=== PATIENT | female | born 1940 | race Asian ===

== ENCOUNTER → 2019-08-28 | Day surgery (SDC) | payer MEDICARE, OTHER ==
[~2019-08-28] MED LIST: ACETAMINOPHEN 325 MG TABLET PO PRN; ALBUTEROL SULFATE 2.5 MG/3 ML NEBU. NEB PRN; ATOR20TA PO; ATROPINE 0.5 MG/5 ML DISP.SYRIN. IV PRN; BALANCED SALT IRRIG OPHTH SOLN 15 ML BOTTLE. IRR ONE; CATARACT OPHTH GEL 0.5 ML SYRINGE. OS ONE; CHONDROIT-SOD-HYALURONATE KIT. OS ONE; EPINEPHrine AMPULE 0.5 MG in BALANCED SALT IRRIG SOLN PLUS 500 ML IO ONE; ERYTHROMYCIN 0.5% OPHTH OINTMENT 1GM TUBE. OS ONE; HYALURONATE SODIUM 20 MG/2 ML SYRINGE. ONE; HYALURONIDASE 75UNITS in LIDOCAINE 2% PF OPHTH 10 ML SYRINGE. OS ONE; HYDR50TA6 PO; INSU100I13 SQ; IV RINGERS SOLUTION,LACTATED 1,000 ML IV SCH; KETO5DRO OS; KETOROLAC TROMETHAMINE 0.5% OPHTH SOLUTION BOTTLE. OS SCH; LEVO88TA2 PO; MIDAZOLAM HCL PF 2 MG/2 ML VIAL. IV PRN; MOXI3DRO18 OS; MOXIFLOXACIN 0.5% OPHTH SOLUTION 3ML BOTTLE. OS SCH; ONDANSETRON PF 4 MG/2 ML VIAL. IV PRN; PHENOL ORAL SPRAY 177ML BOTTLE. MM PRN; POVIDONE-IODINE 5% OPHTH SOLUTION 30ML BOTTLE. OS ONE; PRED5DRO20 OS; PROPOFOL 20 ML IV ONE; SITA100T PO; TETRACAINE 0.5% OPHTH SOLUTION 4ML BOTTLE. OS ONE; TETRACAINE 0.5% OPHTH SOLUTION 4ML BOTTLE. OU ONE; diphenhydrAMINE 50 MG/ML VIAL IV PRN; prednisoLONE ACETATE 1% OPHTH SUSPENSION 5ML BOTTLE. ONE; prednisoLONE ACETATE 1% OPHTH SUSPENSION 5ML BOTTLE. OS SCH
[2019-08-28] MEDS: MOXIFLOXACIN 0.5% OPHTH SOLUTION 3ML BOTTLE. OS SCH ×3 (07:15→07:29)
--- NOTE | 2019-08-28 09:09 | PDOC4 ---
CATARACT Operative Report DATE DATE: 08/28/19 TIME: 09:06 Operation Performed Operative Report Name: Yolanda Og Operation Date: @TD@ Preoperative Diagnosis: 1. Senile cataract, LEFT: eye Postoperative Diagnosis: 1. Senile cataract, LEFT: eye. Operation: 1. Phacoemulsification with Toric posterior chamber intraocular lens implant. Surgeon: Reginaldo Ruff D.O. Anesthesia: Local with monitored anesthesia care. Description of Operation: Prior to surgery, the patient was placed in the seated position. Topical anesthetic was instilled in the eye. The 3,6 and 9 o'clock limbus was marked with a corneal astigmatism marker. With cardiac monitoring and intravenous sedation, the patient received peribulbar anesthesia in the holding area. Pressure was applied to the eye with a Honan balloon for approximately 10 minutes. The patient was taken to the operating room and placed in a supine position. The periorbital region was prepped and draped in the usual sterile fashion. A lid speculum was placed between the eyelids. The patient was positioned under the microscope. A temporal clear corneal incision was made with a keratome. Viscoelastic was then injected into the eye. A side port incision was made three clock hours to the left of the clear corneal incision. A cystotome and capsular forceps were used to make a continuous tear capsulorhexus. Hydrodissection was performed with balanced salt solution. The phacoemulsification needle was placed into the eye and the cataract was removed. The remaining cortical material was removed with irrigation and aspiration. The posterior capsule was noted to be clean and intact. Viscoelastic was again injected into the eye, inflating the posterior capsular bag. The cornea was marked at the appropriate meridian. A foldable intraocular lens was then injected into the eye, unfolding as desired, and positioned in the capsular bag at the appropriate meridian. The viscoelastic was aspirated from the eye. The wound edges were hydrated with balanced salt solution. There were no wound leaks. Viscoelastic was injected over the side port and clear corneal incisions. One drop of Vigamox and one drop of prednisolone acetate were instilled into the eye. The lid speculum was removed and a pressure dressing with a Curtis shield was placed over the eye. The patient was taken to the [facility] room in good condition. ELIZABETH RUFF DO Aug 28, 2019 09:09
[2019-08-28 09:16] VITALS: BP 173/86
== END ==
LOC: SURG 06:32
PROVIDERS: ATTEND Ophthalmology
DX: H25.9 Unspecified age-related cataract (principal); I10 Essential (primary) hypertension; E11.9 Type 2 diabetes mellitus without complications; E03.9 Hypothyroidism, unspecified; E66.9 Obesity, unspecified; Z68.33 Body mass index [BMI] 33.0-33.9, adult; Z90.710 Acquired absence of both cervix and uterus; Z72.89 Other problems related to lifestyle; Z79.84 Long term (current) use of oral hypoglycemic drugs
CPT/HCPCS: 66984; J0171; J2704; V2632

== ENCOUNTER 2021-06-11 05:47 | Emergency (ER) | payer MEDICARE, OTHER ==
[~2021-06-11] VITALS: Ht 160 cm; Wt 86.0 kg
[~2021-06-11 05:47] MED LIST changes: -ACETAMINOPHEN 325 MG TABLET PO PRN; -ALBUTEROL SULFATE 2.5 MG/3 ML NEBU. NEB PRN; -ATROPINE 0.5 MG/5 ML DISP.SYRIN. IV PRN; -BALANCED SALT IRRIG OPHTH SOLN 15 ML BOTTLE. IRR ONE; -CATARACT OPHTH GEL 0.5 ML SYRINGE. OS ONE; -CHONDROIT-SOD-HYALURONATE KIT. OS ONE; -EPINEPHrine AMPULE 0.5 MG in BALANCED SALT IRRIG SOLN PLUS 500 ML IO ONE; -ERYTHROMYCIN 0.5% OPHTH OINTMENT 1GM TUBE. OS ONE; -HYALURONATE SODIUM 20 MG/2 ML SYRINGE. ONE; -HYALURONIDASE 75UNITS in LIDOCAINE 2% PF OPHTH 10 ML SYRINGE. OS ONE; -HYDR50TA6 PO; +HYDR50TA9 PO; -IV RINGERS SOLUTION,LACTATED 1,000 ML IV SCH; -KETOROLAC TROMETHAMINE 0.5% OPHTH SOLUTION BOTTLE. OS SCH; -MIDAZOLAM HCL PF 2 MG/2 ML VIAL. IV PRN; -MOXIFLOXACIN 0.5% OPHTH SOLUTION 3ML BOTTLE. OS SCH; -ONDANSETRON PF 4 MG/2 ML VIAL. IV PRN; -PHENOL ORAL SPRAY 177ML BOTTLE. MM PRN; -POVIDONE-IODINE 5% OPHTH SOLUTION 30ML BOTTLE. OS ONE; -PROPOFOL 20 ML IV ONE; -TETRACAINE 0.5% OPHTH SOLUTION 4ML BOTTLE. OS ONE; -TETRACAINE 0.5% OPHTH SOLUTION 4ML BOTTLE. OU ONE; -diphenhydrAMINE 50 MG/ML VIAL IV PRN; -prednisoLONE ACETATE 1% OPHTH SUSPENSION 5ML BOTTLE. ONE; -prednisoLONE ACETATE 1% OPHTH SUSPENSION 5ML BOTTLE. OS SCH
--- NOTE | 2021-06-11 06:52 | PHYS DOC ---
Past History Additional Past Medical Histor: uterine ca-hyst Past Surgical History: Hysterectomy, Other Additional Past Surgical Histo: breast reduction, bilateral wedge resection General Adult EDM: Chief Complaint: DIZZY/LIGHT HEADED HPI: HPI: 80-year-old female presents with dizziness. The patient was in her garage around 430 this morning when she got a sudden episode of room spinning dizziness. She has been diagnosed with vertigo many years ago, but not having any trouble lately. Patient does admit that last night she thinks she might of had some light food poisoning and had several episodes of vomiting. The vomiting has resolved at this time. Currently, the patient has some room spinning feeling, but it is much better than at home. She is able to open her eyes. She has no other complaints at this time. Review of Systems: Review of Systems: Constitutional: Denies fever or chills Eyes: Denies change in visual acuity HENT: Denies nasal congestion or sore throat Respiratory: Denies cough or shortness of breath Cardiovascular: Denies chest pain or edema GI: Denies abdominal pain, nausea, vomiting, bloody stools or diarrhea : Denies dysuria Musculoskeletal: Denies back pain or joint pain Integument: Denies rash Neurologic: Dizziness. Denies headache, focal weakness or sensory changes Endocrine: Denies polyuria or polydipsia Lymphatic: Denies swollen glands Psychiatric: Denies depression or anxiety Allergies: Allergies: Allergies Coded Allergies Type Severity Reaction Last Updated Verified Sulfa (Sulfonamide Antibiotics) Allergy Unknown 08/23/19 Yes lisinopril Allergy Unknown 08/23/19 Yes Physical Exam: PE: Constitutional: Well developed, well nourished, obese, no acute distress, non- toxic appearance. [] HENT: Normocephalic, atraumatic, bilateral external ears normal, oropharynx moist, no oral exudates, nose normal. [] Eyes: PERRLA, EOMI, conjunctiva normal, no discharge. Mild intermittent nystagmus right eye [] Neck: Normal range of motion, no tenderness, supple, no stridor. [] Cardiovascular: Heart rate regular rhythm, no murmur [] Lungs & Thorax: Bilateral breath sounds clear to auscultation [] Abdomen: Bowel sounds normal, soft, no tenderness, no masses, no pulsatile masses. [] Skin: Warm, dry, no erythema, no rash. [] Back: No tenderness, no CVA tenderness. [] Extremities: No tenderness, no cyanosis, no clubbing, ROM intact, no edema. [] Neurologic: Alert and oriented X 3, normal motor function, normal sensory function, no focal deficits noted. [] Psychologic: Affect normal, judgement normal, mood normal. [] Current Patient Data: Vital Signs: Vital Signs Date Time Temp Pulse Resp B/P (MAP) Pulse Ox O2 Delivery O2 Flow Rate FiO2 06/11/21 05:47 97.7 58 14 139/47 (77) 98 Room Air EKG: EKG: Sinus rhythm, rate 60, normal axis, no ST elevation or depression, inverted T waves in V3 through V6. [] Radiology/Procedures: Radiology/Procedures: [] Impressions: Exam performed: One view chest. Indication: Reason: dizzy / Spl. Instructions: / History: Date of Service: 06/11/2021 6:50 AM Comparison: None available. Single AP upright portable view chest findings: Cardiomediastinal silhouette is within limits of normal. No acute infiltrates, effusion or pneumothorax is detected. Mild prominent The bony structures are normal. Impression: No acute cardiopulmonary process is detected. Electronically signed by: Danelle Chatman MD (06/11/2021 7:03 AM) [facility] DICTATED AND SIGNED BY: DANELLE CHATMAN MD DATE: 06/11/21 0702 CC: REYNA ALICIA DO; LUANN HAGAN DO ~MTH0 0 Heart Score: C/O Chest Pain: N/A Risk Factors: Risk Factors: DM, Current or recent (<one month) smoker, HTN, HLP, family history of CAD, obesity. Risk Scores: Score 0 - 3: 2.5% MACE over next 6 weeks - Discharge Home Score 4 - 6: 20.3% MACE over next 6 weeks - Admit for Clinical Observation Score 7 - 10: 72.7% MACE over next 6 weeks - Early Invasive Strategies Course & Med Decision Making: Course & Med Decision Making Pertinent Labs and Imaging studies reviewed. (See chart for details) The patient's EKG shows some inverted T waves V3 through V6. No acute ST e levations. Her chest x-ray is unremarkable. I have treated the patient with Zofran, normal saline, and meclizine. The patient's labs are significant for a potassium of 3.2 but a blood sugar of 323 with a normal anion gap. This may be contributing significantly to patient's symptoms. The patient's troponin is negative. She is feeling better at this time would like to go home. I have discussed her blood sugar with her. She is reassured by her other negative results. She is stable for discharge at this time. [] Dragon Disclaimer: Dragon Disclaimer: This electronic medical record was generated, in whole or in part, using a voice recognition dictation system. Departure Departure: Impression: Primary Impression: Vertigo Additional Impression: Hyperglycemia Disposition: HOME / SELF CARE / HOMELESS Condition: STABLE Referrals: LUANN HAGAN DO (PCP) Patient Instructions: Hyperglycemia, Hash-ry-Yzgo, Vertigo, [id number] REYNA ALICIA DO Jun 11, 2021 06:52
[2021-06-11 06:55] LABS: BASO # 0.1 x10^3/uL (0.0-0.2); BASO % 1 % (0-3); EOS # 0.1 x10^3/uL (0.0-0.7); EOS % 1 % (0-3); HEMATOCRIT 39.1 % (36.0-47.0); HEMOGLOBIN 13.5 g/dL (12.0-15.5); LYMPH # 1.7 x10^3/uL (1.0-4.8); LYMPH % 17 % (24-48); MEAN CORPUSCULAR HEMOGLOBIN 34 pg (25-35); MEAN CORPUSCULAR HGB CONC 35 g/dL (31-37); MEAN CORPUSCULAR VOLUME 97 fL (79-100); MONO # 0.4 x10^3/uL (0.0-1.1); MONO % 4 % (0-9); NEUT # 7.6 x10^3uL (1.8-7.7); NEUT % 77 % (31-73); PLATELET COUNT 198 x10^3/uL (140-400); RED BLOOD COUNT 4.04 x10^6/uL (3.50-5.40); WHITE BLOOD COUNT 9.9 x10^3/uL (4.0-11.0)
[2021-06-11] MEDS ORDERED: IV NORMAL SALINE 1,000ML 1,000 ML IV ONE (07:00)
[2021-06-11] MEDS ORDERED: ONDANSETRON PF 4 MG/2 ML VIAL. IVP ONE (07:00)
[2021-06-11] MEDS ORDERED: MECLIZINE 12.5 MG TABLET. PO ONE (07:00)
[2021-06-11 07:03] LABS: CALCIUM 9.1 mg/dL (8.5-10.1); CREATININE 0.8 mg/dL (0.6-1.0); GFR 69.4; POTASSIUM 3.2 mmol/L (3.5-5.1)
--- NOTE | 2021-06-11 07:06 | RAD ---
Exam performed: One view chest. Indication: Reason: dizzy / Spl. Instructions: / History: Date of Service: 06/11/2021 6:50 AM Comparison: None available. Single AP upright portable view chest findings: Cardiomediastinal silhouette is within limits of normal. No acute infiltrates, effusion or pneumotho rax is detected. Mild prominent The bony structures are normal. Impression: No acute cardiopulmonary process is detected. Electronically signed by: Danelle Chatman MD (06/11/2021 7:03 AM) [facility]
[2021-06-11 07:09] LABS: ALBUMIN 3.6 g/dL (3.4-5.0); TOTAL BILIRUBIN 0.7 mg/dL (0.2-1.0); TOTAL PROTEIN 7.1 g/dL (6.4-8.2)
[2021-06-11 07:11] LABS: BACTERIA,URINE FEW /HPF (0-FEW); BILIRUBIN,URINE NEG (NEG); CLARITY,URINE HAZY; COLOR,URINE YELLOW; GLUCOSE,URINE >=1000 mg/dL (NEG); NITRITE,URINE NEG (NEG); RBC,URINE >40 /HPF (0-2); SQUAMOUS EPITHELIAL CELL,UR MOD /LPF; UROBILINOGEN,URINE 0.2 mg/dL (0.2 mg/dL)
[2021-06-11] MEDS ORDERED: POTASSIUM CHLORIDE 20 MEQ TABLET.ER. PO ONE (07:30)
[2021-06-11 07:43] VITALS: BP 144/59
== END 2021-06-11 07:44 | disposition home or self-care (01) ==
LOC: ER 07:37
DX: R42 Dizziness and giddiness (principal); R73.9 Hyperglycemia, unspecified; Z88.8 Allergy status to other drugs, medicaments and biological substances; Z88.2 Allergy status to sulfonamides; Z90.710 Acquired absence of both cervix and uterus
CPT/HCPCS: 36415; 71045; 80053; 81001; 84484; 85025; 93005; 96361; 96374; 99285; J2405; J7030

== ENCOUNTER 2021-06-20 05:17 | Emergency (ER) | payer MEDICARE, OTHER ==
[~2021-06-20] VITALS: Ht 160 cm; Wt 86.0 kg
--- NOTE | 2021-06-20 05:30 | PHYS DOC ---
Past History Additional Past Medical Histor: uterine ca-hyst (BRANDEE DOAN MD) Past Surgical History: Hysterectomy, Other Additional Past Surgical Histo: breast reduction, bilateral wedge resection (BRANDEE DOAN MD) Alcohol Use: None (BRANDEE DOAN MD) Adult General HPI HPI Patient is a 80-year-old female who presents to the emergency department [facility] with a chief complaint of left lower quadrant abdominal pain for the last couple of days, 6 out of 10, dull and achy in nature associated with nausea and vomiting has been nonbloody and nonbilious intermittently over the last week. States over the last couple of days she has been unable to really keep any whole food down but is able to drink a little bit of fluid. States she is a diabetic, uses insulin and has been taking her insulin and her other medications as prescribed. Denies any recent traumas, travels, fevers, chest pain, dysuria, hematuria, diarrhea or blood in the stool. Does endorse some feelings of shortness of breath. (BRANDEE DOAN MD) Review of Systems Review of Systems Review of systems otherwise unremarkable except noted in HPI (BRANDEE DOAN MD) Allergies Allergies Allergies Coded Allergies Type Severity Reaction Last Updated Verified Sulfa (Sulfonamide Antibiotics) Allergy Unknown 08/23/19 Yes lisinopril Allergy Unknown 08/23/19 Yes (BRANDEE DOAN MD) Physical Exam Physical Exam Constitutional: Well developed, well nourished, appears ill. [] HENT: Normocephalic, atraumatic, oropharynx moist, no oral exudates, nose normal. [] Eyes: PERRLA, EOMI, conjunctiva normal, no discharge. [] Neck: Normal range of motion, no tenderness, supple, no stridor. [] Cardiovascular:Heart rate regular rhythm, no murmur [] Lungs & Thorax: Bilateral breath sounds with scant rhonchi, tachypnea on room air, hypoxia on room air to 89 Abdomen: soft, no tenderness, no masses, no pulsatile masses. [] Skin: Warm, dry, no erythema, no rash. [] Back: no CVA tenderness. [] Extremities: No tenderness, ROM intact, no edema. [] Neurologic: Alert and oriented X 3, no focal deficits noted. [] Psychologic: Affect normal, judgement normal, mood normal. [] (BRANDEE DOAN MD) EKG EKG [] (BRANDEE DOAN MD) EKG 0523 Sinus tachycardia 114 bpm, right axis deviation, QTC 461, concern for area of elevation with ST depression V4 through V6, this was compared to 06/11 EKG- which has some mild aVR elevation and lateral T wave inversions that are no longer present 0942 Sinus rhythm 70 bpm, right axis deviation, normal intervals, slight aVR ST elevation, T wave inversion V5 and V6, no active chest pain 1326 sinus tachycardia 130 extreme right axis deviation, normal intervals, persistent aVR elevation with V4 through V6 ST segment depressions, no T wave inversions (CINDY,PRISCILLA Duron DO) Radiology/Procedures Radiology/Procedures [] (BRANDEE DOAN MD) Radiology/Procedures IMAGING REPORT Signed PATIENT: EDWIGE CROWLEY ACCOUNT: [id number] : 1940 LOCATION: ER AGE: 80 SEX: F EXAM STATUS: REG ER ORD. PHYSICIAN: BRANDEE DOAN MD REASON: lightheaded, N/V PROCEDURE: CT HEAD WO CONTRAST CT head without contrast dated 06/20/2021 6:40 AM Comparison: None CLINICAL INDICATION: Lightheadedness TECHNIQUE: Contiguous axial imaging of the head was performed from skull base to vertex. One or more of the following individualized dose reduction techniques were utilized for this examination: 1. Automated exposure control 2. Adjustment of the mA and/or kV according to patient size 3. Use of iterative reconstruction technique. FINDINGS: Ventricles and sulci are mildly prominent for age. No midline shift or mass effect. Brain parenchyma is of normal attenuation. No hemorrhage or extra-axial collection. Posterior fossa and brainstem unremarkable. Visualized paranasal sinuses and mastoid air cells are clear. No apparent calvarial abnormality. IMPRESSION: No evidence of acute intracranial abnormality. Electronically signed by: Familia Barajas MD (06/20/2021 6:41 AM) [facility] [place] BY: FAMILIA BARAJAS MD DATE: 06/20/21 0640 CC: BRANDEE DOAN MD; LUANN HAGAN DO; PRISCILLA WHITE DO ~MTH0 0 IMAGING REPORT Signed PATIENT: EDWIGE CROWLEY ACCOUNT: [id number] : 1940 LOCATION: ER AGE: 80 SEX: F EXAM STATUS: REG ER ORD. PHYSICIAN: BRANDEE DOAN MD REASON: SOB PROCEDURE: CHEST AP ONLY Single view chest dated 06/20/2021 6:39 AM: COMPARISON: 06/11/2021 Clinical Indication: Shortness of breath. Findings: Single upright portable exam of the chest was performed. Heart and mediastinal contours are stable. There is some patchy and linear perihilar opacities, unchanged. No consolidation or pleural effusion. No pneumothorax. IMPRESSION: No acute radiographic abnormality. Stable findings compared to 06/11/2021. Electronically signed by: Familia Barajas MD (06/20/2021 6:40 AM) [facility] [place] BY: FAMILIA BARAJAS MD DATE: 06/20/21 0639 CC: BRANDEE DOAN MD; LUANN HAGAN DO; PRISCILLA WHITE DO ~MTH0 0 IMAGING REPORT Signed PATIENT: EDWIGE CROWLEY ACCOUNT: [id number] : 1940 LOCATION: ER AGE: 80 SEX: F EXAM STATUS: REG ER ORD. PHYSICIAN: BRANDEE DOAN MD REASON: LLQ pain PROCEDURE: CT ABD PELV W/ IV CONTRST ONLY CT abdomen pelvis with contrast dated 06/20/2021. No comparison available. CLINICAL INDICATION: Left lower quadrant pain. TECHNIQUE: Contiguous axial imaging of the abdomen pelvis performed following the intravenous administration of 75 cc Isovue-370. One or more of the following individualized dose reduction techniques were utilized for this examination: 1. Automated exposure control 2. Adjustment of the mA and/or kV according to patient size 3. Use of iterative reconstruction technique FINDINGS: Limited images of lung bases are clear. Heart size is within normal limits. No pleural or pericardial effusion. Coronary artery calcifications. Liver is of diffuse low density suggesting fatty infiltration. No apparent mass. Biliary tree is normal in caliber. Calcified stones in the gallbladder. Spleen is normal in size. Pancreas, adrenal glands unremarkable. There is a 8 mm calcific stone at the left UPJ/proximal ureter with mild left-sided h ydronephrosis. Mild hypoenhancement of left kidney relative to the right side. There is also some asymmetric inflammatory stranding in the left perinephric fat. Small low-density focus at the posterior midpole, likely cyst. No right- sided stone or hydronephrosis. Unopacified GI tract normal in caliber and contour. No focal bowel wall thickening. No inflammatory stranding in the mesentery. Appendix normal in caliber. No ascites or lymphadenopathy. Abdominal aorta normal in caliber. Images of pelvis show nondistended urinary bladder. Mild diffuse bladder wall thickening. No free fluid or pelvic lymphadenopathy. Bone windows show no acute findings. Multilevel spondylosis. IMPRESSION: 1. There is a 8 mm calcific stone at the proximal left ureter with mild ob structive uropathy. 2. Otherwise no acute findings. Normal appendix. 3. Cholelithiasis. 4. Mild wall thickening of the urinary bladder, nonspecific. Consider acute or chronic cystitis. Electronically signed by: Familia Barajas MD (06/20/2021 6:46 AM) [facility] [place] SIGNED BY: FAMILIA BARAJAS MD DATE: 06/20/21 0642 CC: BRANDEE DOAN MD; LUANN HAGAN DO; PRISCILLA WHITE DO ~MTH0 0 (VOHS,PRISCILLA Oliverio DO) Heart Score C/O Chest Pain: No Risk Factors: Risk Factors: DM, Current or recent (<one month) smoker, HTN, HLP, family histo ry of CAD, obesity. Risk Scores: Risk Factors: DM, Current or recent (<one month) smoker, HTN, HLP, family history of CAD, obesity. (BRANDEE DOAN MD) Course & Med Decision Making Course & Med Decision Making Patient is a 80-year-old female who presents with a chief complaint of left lower quadrant abdominal pain, nausea and vomiting Vital signs notable for tachycardia, tachypnea, hypoxia on room air. Placed on the monitor with IV access established. Placed on 2 L nasal cannula to get to 93%. (BRANDEE DOAN MD) Course & Med Decision Making I received sign out at shift change from Dr. Doan. Pt with left sided abdominal pain, nausea and vomiting, concern for sepsis secondary to pyelonephritis with left-sided obstructive uropathy and mild hydronephrosis. EKG with no new ischemic changes-initial troponin negative, repeat elevated. I d/w Dr. Nassar, cardiology who recommends aspirin and serial troponins. I re- evaluated patient multiple times with her son-in-law at bedside, (patient consents to his/her/their knowledge and involvement in pts' medical care). Pt later c/o leg cramps, treated with flomax. Pt also treated w/rocephin, toradol and flomax. Pt requested benadryl. Repeat labs show worsening renal function s/p 2.5L NS. Pt accepted at [facility]-Dr. Negro Murphy was updated regarding nstemi. Pt stable at time of ems transfer and had no abdominal or chest discomfort at that time. I have spoken with the patient and/or caregivers. I have explained the patient's condition, diagnosis and treatment plan based on the information available to me at this time. I have answered the patient's and/or caregivers questions and answered any concerns. The patient and/or caregivers have as good an understanding of the patient's diagnosis, condition and treatment plan as can be expected at this point. The patient has been stabilized within the capability of the emergency department. The patient will be transported for further care and management or will be moved to an observation or inpatient service. I have communicated with the staff or medical practitioner taking over this patient's care. Critical Care: Authorized and Performed by: Priscilla White DO Total critical care time: approximately 120 minutes Due to a high probability of clinically significant, life threatening deterioration, the patient required my highest level of preparedness to intervene emergently and I personally spent this critical care time directly and personally managing the patient. This critical care time included obtaining a history; examining the patient; pulse oximetry; ventilator management if necessary; ordering and review of studies; arranging urgent treatment with development of a management plan; evaluation of patient's response to treatment; frequent reassessment; discussion with patient/family; and, discussions with other providers. This critical care time was performed to assess and manage the high probability of imminent, life-threatening deterioration that could result in multi-organ failure. It was exclusive of separately billable procedures and treating other patients and teaching time. Please see MDM section and the rest of the note for further information on patient assessment and treatment. (PRISCILLA WHITE DO) Dragon Disclaimer Dragon Disclaimer This electronic medical record was generated, in whole or in part, using a voice recognition dictation system. (BRANDEE DOAN MD) Departure Departure: Impression: Primary Impression: Abdominal pain Additional Impressions: Nausea & vomiting Ureterolithiasis Sepsis Obstructive uropathy Pyelonephritis ANDREA (acute kidney injury) NSTEMI (non-ST elevated myocardial infarction) Disposition: [address] [facility] ([facility], Dr. Negro Butler) Condition: CRITICAL Referrals: LUANN HAGAN DO (PCP) Problem Qualifiers BRANDEE DOAN MD Jun 20, 2021 05:30 VOPRISCILLA DO Jun 20, 2021 06:58
--- NOTE | 2021-06-20 05:31 | EKG ---
[address] [address] Test Date: 2021-06-20 Test Time: 05:23:10 Pat Name: EDWIGE CROWLEY Department: Room: Gender: F Hay Baler: : 1940 Requested By: BRANDEE DOAN Order Number: [id number] Reading MD: Mike Nassar Measurements Intervals [place] Rate: 114 P: 27 DC: 158 QRS: 102 QRSD: 86 T: 38 QT: 332 QTc: 461 Interpretive Statements SINUS TACHYCARDIA ANTEROLATERAL ISCHEMIA OR LV STRAIN Electronically Signed On 06-21-2021 16:41:56 CDT by Mike Nassar
[2021-06-20] MEDS ORDERED: ACETAMINOPHEN 500 MG TABLET PO ONE ×2 (05:43→05:45)
[2021-06-20] MEDS ORDERED: IV RINGERS SOLUTION,LACTATED 1,000 ML IV ONE (05:45)
[2021-06-20] MEDS ORDERED: CONTRAST GIVEN. MC PRN (05:45)
[2021-06-20] MEDS ORDERED: IOHEXOL 300 MG/ML 75 ML VIAL. IV ONE (06:00)
[2021-06-20] MEDS ORDERED: diphenhydrAMINE 50 MG/ML VIAL IVP ONE ×2 (06:00→12:15)
[2021-06-20] MEDS ORDERED: ONDANSETRON PF 4 MG/2 ML VIAL. IVP ONE ×2 (06:00→11:15)
[2021-06-20 06:31] LABS: BASO % 0 % (0-3); EOS % 0 % (0-3); HEMATOCRIT 39.4 % (36.0-47.0); HEMOGLOBIN 13.6 g/dL (12.0-15.5); LYMPH # 0.4 x10^3/uL (1.0-4.8); LYMPH % 5 % (24-48); MEAN CORPUSCULAR HEMOGLOBIN 33 pg (25-35); MEAN CORPUSCULAR HGB CONC 35 g/dL (31-37); MEAN CORPUSCULAR VOLUME 97 fL (79-100); MONO % 1 % (0-9); NEUT # 7.6 x10^3uL (1.8-7.7); NEUT % 95 % (31-73); PLATELET COUNT 182 x10^3/uL (140-400); RED BLOOD COUNT 4.08 x10^6/uL (3.50-5.40)
[2021-06-20 06:34] LABS: CALCIUM 8.6 mg/dL (8.5-10.1); CREATININE 1.3 mg/dL (0.6-1.0); GFR 39.6; POTASSIUM 3.2 mmol/L (3.5-5.1)
[2021-06-20 06:40] LABS: ALBUMIN 3.4 g/dL (3.4-5.0); MAGNESIUM 1.8 mg/dL (1.8-2.4); TOTAL BILIRUBIN 1.8 mg/dL (0.2-1.0); TOTAL PROTEIN 6.9 g/dL (6.4-8.2)
--- NOTE | 2021-06-20 06:43 | RAD ---
Single view chest dated 06/20/2021 6:39 AM: COMPARISON: 06/11/2021 Clinical Indication: Shortness of breath. Findings: Single upright portable exam of the chest was performed. Heart and mediastinal contours are stable. T here is some patchy and linear perihilar opacities, unchanged. No consolidation or pleural effusion. No pneumothorax. IMPRESSION: No acute radiographic abnormality. Stable findings compared to 06/11/2021. Electronically signed by: Familia Barajas MD (06/20/2021 6:40 AM) [facility]
--- NOTE | 2021-06-20 06:44 | RAD ---
CT head without contrast dated 06/20/2021 6:40 AM Comparison: None CLINICAL INDICATION: Lightheadedness TECHNIQUE: Contiguous axial imaging of the head was performed from skull base to vertex. One or more of the following individualized dose reduction techniques were utilized for this examinat ion: 1. Automated exposure control 2. Adjustment of the mA and/or kV according to patient size 3. Use of iterative reconstruction technique. FINDINGS: Ventricles and sulci are mildly prominent for age. No midline shift or mass effect. Brain parenchyma is of normal attenuation. No hemorrhage or extra-axial collection. Posterior fossa and brainstem unre markable. Visualized paranasal sinuses and mastoid air cells are clear. No apparent calvarial abnormality. IMPRESSION: No evidence of acute intracranial abnormality. Electronically signed by: Familia Barajas MD (06/20/2021 6:41 AM) [facility]
--- NOTE | 2021-06-20 06:48 | RAD ---
CT abdomen pelvis with contrast dated 06/20/2021. No comparison available. CLINICAL INDICATION: Left lower quadrant pain. TECHNIQUE: Contiguous axial imaging of the abdomen pelvis performed following the intravenous administration of 75 cc Isovue-370. One or more of the following individualized dose reduction techniques were utilized for this examinat ion: 1. Automated exposure control 2. Adjustment of the mA and/or kV according to patient size 3. Use of iterative reconstruction technique FINDINGS: Limited images of lung bases are clear. Heart size is within normal limits. No pleural or pericardial effusion. Coronary artery calcifications. Liver is of diffuse low density suggesting fatty infiltration. No apparent mass. Biliary tree is norm al in caliber. Calcified stones in the gallbladder. Spleen is normal in size. Pancreas, adrenal glands unremarkable. There is a 8 mm calcific stone at th e left UPJ/proximal ureter with mild left-sided hydronephrosis. Mild hypoenhancement of left kidney r elative to the right side. There is also some asymmetric inflammatory stranding in the left perinephr ic fat. Small low-density focus at the posterior midpole, likely cyst. No right-sided stone or hydron ephrosis. Unopacified GI tract normal in caliber and contour. No focal bowel wall thickening. No inflammatory s tranding in the mesentery. Appendix normal in caliber. No ascites or lymphadenopathy. Abdominal aorta normal in caliber. Images of pelvis show nondistended urinary bladder. Mild diffuse bladder wall thickening. No free flu id or pelvic lymphadenopathy. Bone windows show no acute findings. Multilevel spondylosis. IMPRESSION: 1. There is a 8 mm calcific stone at the proximal left ureter with mild obstructive uropathy. 2. Otherwise no acute findings. Normal appendix. 3. Cholelithiasis. 4. Mild wall thickening of the urinary bladder, nonspecific. Consider acute or chronic cystitis. Electronically signed by: Familia Barajas MD (06/20/2021 6:46 AM) [facility]
[2021-06-20] MEDS ORDERED: TAMSULOSIN 0.4 MG CAP.ER.24H. PO ONE (07:00)
[2021-06-20] MEDS: KETOROLAC 15 MG/ML VIAL. IVP ONE ×2 (07:00→08:09)
[2021-06-20 07:56] LABS: BACTERIA,URINE MANY /HPF (0-FEW); BILIRUBIN,URINE NEG (NEG); CLARITY,URINE CLOUDY; COLOR,URINE YELLOW; GLUCOSE,URINE 100 mg/dL (NEG); NITRITE,URINE POS (NEG); SQUAMOUS EPITHELIAL CELL,UR MANY /LPF; UROBILINOGEN,URINE 0.2 mg/dL (0.2 mg/dL)
[2021-06-20] MEDS ORDERED: cefTRIAXone SODIUM 1 GM VIAL ONE (08:04)
[2021-06-20] MEDS ORDERED: IV NORMAL SALINE 50ML 50 ML ONE (08:04)
[2021-06-20] MEDS ORDERED: DEXTROSE 50% 25 GM / 50ML DISP.SYRIN. IV ONE ×2 (10:53→11:00)
[2021-06-20] MEDS ORDERED: ONDANSETRON PF 4 MG/2 ML VIAL. ONE (11:09)
[2021-06-20] MEDS ORDERED: diazePAM 5 MG TABLET. PO ONE (12:00)
--- NOTE | 2021-06-20 12:00 | EKG ---
[address] [address] Test Date: 2021-06-20 Test Time: 09:42:24 Pat Name: EDWIGE CROWLEY Department: Room: Gender: F [employer]: ADRI : 1940 Requested By: AIME WHITE Order Number: [id number] Reading MD: Mike Nassar Measurements Intervals [place] Rate: 78 P: 41 IN: 164 QRS: 100 QRSD: 90 T: 62 QT: 376 QTc: 432 Interpretive Statements SINUS RHYTHM RIGHTWARD AXIS T ABNORMALITY IN ANTEROLATERAL LEADS ABNORMAL ECG Electronically Signed On 06-21-2021 16:40:56 CDT by Mike Nassar
[2021-06-20] MEDS ORDERED: diphenhydrAMINE 50 MG/ML VIAL ONE (12:04)
[2021-06-20] MEDS ORDERED: IV NORMAL SALINE 1,000ML 1,000 ML IV ONE ×4 (12:15→13:45)
[2021-06-20] MEDS ORDERED: VANCOMYCIN 2 GM in IV NORMAL SALINE 500ML 500 ML IV ONE (12:30)
[2021-06-20] MEDS ORDERED: VANCOMYCIN PER PHARMACY MC PRN (12:30)
[2021-06-20] MEDS ORDERED: ASPIRIN 325 MG TABLET PO ONE (13:45)
[2021-06-20 13:47] VITALS: BP 135/54
[2021-06-20 13:51] LABS: CALCIUM 8.4 mg/dL (8.5-10.1); CREATININE 1.9 mg/dL (0.6-1.0); GFR 25.6; POTASSIUM 3.1 mmol/L (3.5-5.1)
--- NOTE | 2021-06-20 13:53 | EKG ---
[address] [address] Test Date: 2021-06-20 Test Time: 13:26:32 Pat Name: EDWIGE CROWLEY Department: Room: Gender: F [employer] A[employer]: ADRI : 1940 Requested By: AIME WHITE Order Number: [id number] Reading MD: Mike Nassar Measurements Intervals [place] Rate: 130 P: -69 DE: 150 QRS: 118 QRSD: 90 T: 45 QT: 304 QTc: 454 Interpretive Statements SINUS TACHYCARDIA LEFT ATRIAL ABNORMALITY ABNORMAL RIGHT AXIS DEVIATION LEFT POSTERIOR FASCICULAR BLOCK ABNORMAL ECG Electronically Signed On 06-21-2021 16:39:32 CDT by Mike Nassar
[2021-06-20] MEDS ORDERED: ASPIRIN CHEWABLE 81 MG TABLET. ONE (13:59)
[2021-06-20] MEDS ORDERED: ASPIRIN CHEWABLE 81 MG TABLET. PO ONE (14:00)
== END 2021-06-20 14:57 | disposition short-term general hospital (02) ==
LOC: ER 05:17
DX: A41.9 Sepsis, unspecified organism (principal); I21.4 Non-ST elevation (NSTEMI) myocardial infarction; N17.9 Acute kidney failure, unspecified; N12 Tubulo-interstitial nephritis, not specified as acute or chronic; N13.9 Obstructive and reflux uropathy, unspecified; N13.2 Hydronephrosis with renal and ureteral calculous obstruction; Z20.822 Contact with and (suspected) exposure to COVID-19; Z90.710 Acquired absence of both cervix and uterus; Z88.2 Allergy status to sulfonamides; Z88.8 Allergy status to other drugs, medicaments and biological substances
CPT/HCPCS: 36415; 70450; 71045; 74177; 80048; 80053; 81001; 82803; 82947; 83605; 83690; 83735; 84484; 85025; 87040; 87077; 87086; 87186; 87426; 93005; 96361; 96365; 96366; 96367; 96375; 96376; 99291; 99292; C9803; J0696; J1200; J2405; J3370; J7030; J7040; J7120; U0003; J1885

== ENCOUNTER 2021-12-11 09:26 | Emergency (ER) | payer MEDICARE, OTHER ==
[~2021-12-11] VITALS: Ht 160 cm; Wt 75.6 kg
--- NOTE | 2021-12-11 10:28 | PHYS DOC ---
Past History Additional Past Medical Histor: uterine ca-hyst; a flutter Past Surgical History: Hysterectomy, Oophorectomy, Other Additional Past Surgical Histo: breast reduction, bilateral wedge resection Alcohol Use: None General Adult EDM: Chief Complaint: DIARRHEA HPI: HPI: Patient is a 81-year-old female coming in for weakness, vomiting, and diarrhea. Patient states that she has been having diarrhea for the past 11 days, about 4-5 bowel movements daily. Denies any blood or melena. States that she has seen her primary care provider a couple of times and was prescribed Imodium. Patient states she picked up the prescription start taking Imodium yesterday, after that had to episodes of nonbloody nonbilious emesis. No vomiting today. Patient denies any sick contacts, recent travel, raw or undercooked foods. Patient states she has had similar problems in the past and was hospitalized last year for 8 weeks at [facility] for an MRI, kidney stones, and diarrhea. Review of Systems: Review of Systems: All other systems within normal limits except for as noted in the HPI Current Medications: Current Meds: Current Medications Medications (Trade) Dose Ordered Sig/Tabby Start Time Stop Time Status Last Admin Dose Admin Lactated Ringer's 1,000 ml @ 1,000 mls/hr 1X ONCE 12/11/21 10:30 12/11/21 11:29 Ondansetron HCl (Zofran) 4 mg 1X ONCE 12/11/21 10:30 12/11/21 10:31 Allergies: Allergies: Allergies Coded Allergies Type Severity Reaction Last Updated Verified Sulfa (Sulfonamide Antibiotics) Allergy Unknown 12/11/21 Yes lisinopril Allergy Unknown 12/11/21 Yes Physical Exam: PE: Constitutional: Well developed, well nourished, no acute distress, non-toxic appearance. [] HENT: Normocephalic, atraumatic, bilateral external ears normal, nose normal. [] Eyes: PERRLA, conjunctiva normal, no discharge. [] Neck: No rigidity, supple, no stridor. [] Cardiovascular: Regular rate and rhythm, brisk cap refill [] Lungs & Thorax: Non labored symmetric respirations, no tachypnea or respiratory distress [] Abdomen: Soft, nondistended, left lower quadrant tenderness. Skin: Warm, dry, no erythema, no rash. [] Back: Unremarkable Extremities: No deformities, range of motion grossly intact, no lower extremity edema [] Neurologic: Alert and oriented X 3, no focal deficits noted. [] Psychologic: Affect normal, judgement normal, mood normal. [] Current Patient Data: Vital Signs: Vital Signs Date Time Temp Pulse Resp B/P (MAP) Pulse Ox O2 Delivery O2 Flow Rate FiO2 12/11/21 09:43 99.8 71 16 125/41 (69) 95 Room Air EKG: EKG: Sinus rhythm, heart rate 70 bpm, normal axis, no STEMI [] Radiology/Procedures: Radiology/Procedures: [address] [address] IMAGING REPORT Signed PATIENT: EDWIGE CROWLEY ACCOUNT: [id number] : 1940 LOCATION: ER AGE: 81 SEX: F EXAM STATUS: REG ER ORD. PHYSICIAN: SHANON MORALES MD REASON: LLQ pain PROCEDURE: CT ABDOMEN PELVIS WO CONTRAST Exam: CT abdomen/pelvis without intravenous contrast Indication: Left lower quadrant pain Comparison: CT abdomen pelvis 07/18/2021 Technique: Helical CT imaging performed of the abdomen and pelvis without the use of intravenous contrast. Sagittal and coronal reformats were obtained. One or more of the following individualized dose reduction techniques were utilized for this examination: 1. Automated exposure control 2. Adjustment of the mA and/or kV according to patient size 3. Use of iterative reconstruction technique. Findings: Inherently limited evaluation without intravenous contrast. Lower chest: The heart is normal in size. There are coronary artery calcifications. Lung bases are clear. Liver: Normal. Gallbladder/Biliary Tree: There are stones and sludge in the gallbladder. Bile ducts are normal. Pancreas: Normal. Spleen: Normal. Adrenal Glands: Normal. Kidneys/Ureters/Bladder: Kidneys are normal in size. A left nephroureteral stent has been removed. Left hydronephrosis has resolved. No hydronephrosis or nephrolithiasis. The partially exophytic mass in the inferior right renal pole with Hounsfield units of [address] 06/20/2021 is unchanged in size measuring 2.4 cm. This has Hounsfield use of [address] This is suspicious for renal carcinoma. Ureters and bladder are normal. Reproductive Organs: Uterus is surgically absent. No adnexal mass. Stomach, small bowel, and colon: The stomach is decompressed, limiting evaluation. There is no small bowel obstruction. There is new moderate colonic wall thickening from the proximal transverse colon through the rectum with surrounding inflammation. This is greatest in the transverse colon and distal rectum. The appendix is normal. Vasculature: No aortic aneurysm. Mild calcified aortic atherosclerosis. Lymph Nodes: There are small bilateral iliac chain lymph nodes and prominent bilateral inguinal lymph nodes, unchanged. Peritoneum and retroperitoneum: Resolving left retroperitoneal hematoma with small amount of residual low-density old blood products. No acute retroperitoneal hemorrhage. No free fluid or free air. Bones: The bones are diffusely demineralized. No acute osseous abnormality. There is mild lower lumbar facet arthrosis. Miscellaneous: None IMPRESSION: 1. Colitis involving the transverse colon through rectum, greatest in the transverse colon where there is moderate wall thickening and surrounding inflammation. There is also moderate wall thickening in the distal rectum, underlying mass not excluded. 2. Resolving left retroperitoneal hematoma with small amount of residual old low density blood products. No acute hemorrhage. 3. Unchanged 2.4 cm mass in the inferior right renal pole which demonstrated enhancement on 06/20/2021 and is suspicious for renal cell carcinoma. Recommend CT or MRI with renal mass protocol if not already performed. 4. Interval removal of left nephroureteral stent and resolution of left hydro nephrosis. 5. Cholelithiasis and sludge in the gallbladder. Electronically signed by: Shanon Zapata MD (12/11/2021 1:08 PM) [id number] DICTATED AND SIGNED BY: SHANON ZAPATA MD DATE: 12/11/21 1259 CC: KAREY OVALLE MD; SHANON MORALES MD ~ [] Heart Score: C/O Chest Pain: No Risk Factors: Risk Factors: DM, Current or recent (<one month) smoker, HTN, HLP, family history of CAD, obesity. Risk Scores: Score 0 - 3: 2.5% MACE over next 6 weeks - Discharge Home Score 4 - 6: 20.3% MACE over next 6 weeks - Admit for Clinical Observation Score 7 - 10: 72.7% MACE over next 6 weeks - Early Invasive Strategies Course & Med Decision Making: Course & Med Decision Making Pertinent Labs and Imaging studies reviewed. (See chart for details) Potassium repletion started in the emergency department as well as normal saline for hyponatremia. Patient started on antibiotics and transferred to [facility] per patient request since that is where her specialists are. Transfer line consulted accepted by Dr. Ayden Cortez [] Kat Disclaimer: Kat Disclaimer: This electronic medical record was generated, in whole or in part, using a voice recognition dictation system. Departure Departure: Impression: Primary Impression: Colitis Additional Impressions: Hypokalemia Hyponatremia Abdominal pain, vomiting, and diarrhea Disposition: 02 [facility]ORT TERM [facility]OSP[facility] Condition: STABLE Referrals: KAREY OVALLE MD (PCP) SHANON MORALES MD Dec 11, 2021 10:28
[2021-12-11] MEDS ORDERED: IV RINGERS SOLUTION,LACTATED 1,000 ML IV ONE (10:30)
[2021-12-11] MEDS ORDERED: ONDANSETRON PF 4 MG/2 ML VIAL. IVP ONE ×2 (10:30→12:30)
[2021-12-11 11:07] LABS: BASO % 0 % (0-3); EOS % 0 % (0-3); HEMATOCRIT 31.1 % (36.0-47.0); HEMOGLOBIN 10.5 g/dL (12.0-15.5); LYMPH # 1.2 x10^3/uL (1.0-4.8); LYMPH % 5 % (24-48); MEAN CORPUSCULAR HEMOGLOBIN 32 pg (25-35); MEAN CORPUSCULAR HGB CONC 34 g/dL (31-37); MEAN CORPUSCULAR VOLUME 95 fL (79-100); MONO # 1.1 x10^3/uL (0.0-1.1); MONO % 5 % (0-9); NEUT # 19.4 x10^3uL (1.8-7.7); NEUT % 89 % (31-73); PLATELET COUNT 238 x10^3/uL (140-400); RED BLOOD COUNT 3.29 x10^6/uL (3.50-5.40); RED CELL DISTRIBUTION WIDTH 13.6 % (11.5-14.5); WHITE BLOOD COUNT 21.7 x10^3/uL (4.0-11.0)
[2021-12-11 11:21] LABS: ALBUMIN 2.5 g/dL (3.4-5.0); ALBUMIN/GLOBULIN RATIO 0.8 (1.0-1.7); CREATININE 1.8 mg/dL (0.6-1.0); GFR 27.1; MAGNESIUM 1.8 mg/dL (1.8-2.4); PHOSPHORUS 3.3 mg/dL (2.6-4.7); TOTAL BILIRUBIN 1.3 mg/dL (0.2-1.0); TOTAL PROTEIN 5.8 g/dL (6.4-8.2)
[2021-12-11 11:26] LABS: POTASSIUM 2.4 mmol/L (3.5-5.1)
[2021-12-11 11:34] LABS: AMORPHOUS SEDIMENT,UR PRESENT /HPF; BACTERIA,URINE MANY /HPF (0-FEW); CLARITY,URINE HAZY; GLUCOSE,URINE NEG (NEG); HYALINE CASTS, URINE OCC /HPF; NITRITE,URINE POS (NEG); RBC,URINE 0 /HPF (0-2); SQUAMOUS EPITHELIAL CELL,UR FEW /LPF; UROBILINOGEN,URINE 0.2 mg/dL (0.2 mg/dL); WBC,URINE OCC /HPF (0-4)
[2021-12-11 11:35] LABS: COLOR,URINE YELLOW
[2021-12-11 11:36] LABS: FECAL OB PT POSITIVE (NEG)
[2021-12-11 11:39] LABS: % BANDS 8 % (0-9); % LYMPHS 5 % (24-48); % MONOS 8 % (0-10); % SEGS 79 % (35-66); PLT ESTIMATE ADEQUATE (ADEQUATE)
[2021-12-11 11:40] LABS: TOXIC GRANULATION SLIGHT; TOXIC VACUOLATION SLIGHT
[2021-12-11] MEDS ORDERED: POTASSIUM BICARB 20 MEQ EFFERVESCENT TABLET. PO ONE (12:00)
--- NOTE | 2021-12-11 12:16 | EKG ---
[address] [address] Test Date: 2021-12-11 Test Time: 10:33:41 Pat Name: EDWIGE CROWLEY Department: Room: Gender: F Music Teacher: ADRI : 1940 Requested By: DAMARIS MORALES Order Number: [id number] Reading MD: Mike Nassar Measurements Intervals [place] Rate: 70 P: [place]: QRS: 90 QRSD: 98 T: 83 QT: 422 QTc: 459 Interpretive Statements SINUS RHYTHM Electronically Signed On 12-12-2021 21:19:51 CDT by Mike Nassar
[2021-12-11] MEDS: POTASSIUM CHLORIDE 20MEQ 100 ML IV SCH ×2 (12:53→15:57)
--- NOTE | 2021-12-11 13:11 | RAD ---
Exam: CT abdomen/pelvis without intravenous contrast Indication: Left lower quadrant pain Comparison: CT abdomen pelvis 07/18/2021 Technique: Helical CT imaging performed of the abdomen and pelvis without the use of intravenous cont rast. Sagittal and coronal reformats were obtained. One or more of the following individualized dose reduction techniques were utilized for this examinat ion: 1. Automated exposure control 2. Adjustment of the mA and/or kV according to patient size 3. Use of iterative reconstruction technique. Findings: Inherently limited evaluation without intravenous contrast. Lower chest: The heart is normal in size. There are coronary artery calcifications. Lung bases are cl ear. Liver: Normal. Gallbladder/Biliary Tree: There are stones and sludge in the gallbladder. Bile ducts are normal. Pancreas: Normal. Spleen: Normal. Adrenal Glands: Normal. Kidneys/Ureters/Bladder: Kidneys are normal in size. A left nephroureteral stent has been removed. Le ft hydronephrosis has resolved. No hydronephrosis or nephrolithiasis. The partially exophytic mass in the inferior right renal pole with Hounsfield units of [address] 06/20/2021 is uncha nged in size measuring 2.4 cm. This has Hounsfield use of [address] This is suspicious fo r renal carcinoma. Ureters and bladder are normal. Reproductive Organs: Uterus is surgically absent. No adnexal mass. Stomach, small bowel, and colon: The stomach is decompressed, limiting evaluation. There is no small bowel obstruction. There is new moderate colonic wall thickening from the proximal transverse colon t hrough the rectum with surrounding inflammation. This is greatest in the transverse colon and distal rectum. The appendix is normal. Vasculature: No aortic aneurysm. Mild calcified aortic atherosclerosis. Lymph Nodes: There are small bilateral iliac chain lymph nodes and prominent bilateral inguinal lymph nodes, unchanged. Peritoneum and retroperitoneum: Resolving left retroperitoneal hematoma with small amount of residual low-density old blood products. No acute retroperitoneal hemorrhage. No free fluid or free air. Bones: The bones are diffusely demineralized. No acute osseous abnormality. There is mild lower lumba r facet arthrosis. Miscellaneous: None IMPRESSION: 1. Colitis involving the transverse colon through rectum, greatest in the transverse colon where the re is moderate wall thickening and surrounding inflammation. There is also moderate wall thickening i n the distal rectum, underlying mass not excluded. 2. Resolving left retroperitoneal hematoma with small amount of residual old low density blood produc ts. No acute hemorrhage. 3. Unchanged 2.4 cm mass in the inferior right renal pole which demonstrated enhancement on 06/20/2021 and is suspicious for renal cell carcinoma. Recommend CT or MRI with renal mass protocol if not alre baljinder performed. 4. Interval removal of left nephroureteral stent and resolution of left hydronephrosis. 5. Cholelithiasis and sludge in the gallbladder. Electronically signed by: Shanon Zapata MD (12/11/2021 1:08 PM) [id number]
[2021-12-11] MEDS ORDERED: IV NORMAL SALINE 50ML 50 ML ONE (14:11)
[2021-12-11] MEDS ORDERED: cefTRIAXone SODIUM 1 GM VIAL ONE (14:11)
[2021-12-11 16:00] VITALS: BP 116/37
== END 2021-12-11 16:54 | disposition short-term general hospital (02) ==
LOC: ER 09:26
DX: E87.6 Hypokalemia (principal); K52.9 Noninfective gastroenteritis and colitis, unspecified; E87.1 Hypo-osmolality and hyponatremia; R10.32 Left lower quadrant pain; Z90.710 Acquired absence of both cervix and uterus; Z90.722 Acquired absence of ovaries, bilateral; Z88.2 Allergy status to sulfonamides; Z88.8 Allergy status to other drugs, medicaments and biological substances
CPT/HCPCS: 36415; 74176; 80053; 81001; 82274; 83605; 83690; 83735; 84100; 84484; 85007; 85025; 87077; 87086; 87186; 87505; 93005; 96361; 96365; 96366; 96368; 96375; 96376; 99285; J0696; J2405; J3480; J3490; J7120